=== PATIENT | female | born 1970 | race Caucasian/White ===

== ENCOUNTER 2017-08-09 19:45 | Emergency (ER) | payer OTHER ==
[~2017-08-09] VITALS: Ht 160 cm; Wt 82.1 kg
[~2017-08-09 19:45] MED LIST: COLACE100 MG PO; EXCEDRIN MIGRA1 EAC3 PO; IBUPROFEN400 MG PO; SINUS PRESSURE-10 MG PO; ZYRTEC10 M2 PO
[2017-08-09 20:15] LABS: MCH 29.7 PG (29.0-34.0); MCHC 34.6 G/DL (30.0-36.0); MEAN PLAT.VOLUME 8.9 uM^3 (9.5-12.4); PLATELET COUNT 311 K/uL (156-360); RBC DIS.WIDTH-CV 12.2 % (11.8-14.6); RBC DIS.WIDTH-SD 38.5 % (39-53); RED BLOOD COUNT 4.07 M/uL (3.80-5.20); WHITE BLOOD COUNT 7.5 K/uL (4.1-10.2)
[2017-08-09 20:23] LABS: CHLORIDE 107 mEq/L (99-109)
[2017-08-09 20:24] LABS: POTASSIUM 3.7 mEq/L (3.7-5.4); SODIUM 139 mEq/L (136-147)
[2017-08-09 20:25] LABS: GLUCOSE 110 mg/dL (70-99)
[2017-08-09 20:27] LABS: ANION GAP 8 MEQ/L (2-14)
[2017-08-09 20:29] LABS: GFR ESTIMATE (CALCULATED) > 59 mL/min/
[2017-08-09 20:30] LABS: UREA NITROGEN (BUN) 17 mg/dL (9-23)
[2017-08-09] MEDS ORDERED: DIOVAN80 MG PO (22:52)
[2017-08-09 23:09] VITALS: BP 130/95
== END 2017-08-09 23:10 | disposition home or self-care (01) ==
LOC: EME 19:45
DX: I10 Essential (primary) hypertension (principal); R55 Syncope and collapse; E78.5 Hyperlipidemia, unspecified; Z88.5 Allergy status to narcotic agent
CPT/HCPCS: 71020; 80048; 85027; 93005; 99281; 99285